=== PATIENT | male | born 1965 | race Caucasian/White ===

== ENCOUNTER 2018-07-10 10:01 | Observation (INO) ==
[2018-07-10 11:03] LABS: Baso # (Auto) 0.1 th/mm3 (0.0-0.2); Baso % (Auto) 1.1 % (0.0-2.0); Eos # (Auto) 0.1 th/mm3 (0.0-0.4); Eos % (Auto) 1.2 % (0.0-4.0); Hematocrit 46.1 % (39.0-51.0); Hemoglobin 16.1 gm/dL (13.0-17.0); Lymph # (Auto) 3.6 th/mm3 (1.0-4.8); Lymph % (Auto) 30.2 % (9.0-44.0); Mean Corpuscular HGB Conc 34.9 % (32.0-36.0); Mean Corpuscular Hemoglobin 32.5 pg (27.0-34.0); Mean Corpuscular Volume 92.9 fL (80.0-100.0); Mean Platelet Volume 11.1 fL (7.0-11.0); Mono # (Auto) 0.7 th/mm3 (0.0-0.9); Mono % (Auto) 5.7 % (0.0-8.0); Neut # (Auto) 7.3 th/mm3 (1.8-7.7); Neut % (Auto) 61.8 % (16.0-70.0); Platelet Count 191 th/mm3 (150-450); Red Blood Count 4.96 mil/mm3 (4.50-5.90); Red Cell Distribution Width 14.3 % (11.6-17.2); White Blood Count 11.8 th/mm3 (4.0-11.0)
--- NOTE | 2018-07-10 11:05 | XR ---
EXAM DATE: 07/10/2018 10:43 AM EDT AGE/SEX: 52 years / Male INDICATIONS: Swollen hands and feet, very short of breath today, no chest pain CLINICAL DATA: This is the patient's initial encounter. Patient reports that signs and symptoms have been present for 1 day and indicates a pain score of 0/10. MEDICAL/SURGICAL HISTORY: . smoker None. COMPARISON: [facility] [place], [place]. . FINDINGS: Redemonstration of pleural thickening in the left chest wall. There is however new patchy airspace op acities in the left lower lobe. The cardiomediastinal contours are unremarkable. Osseous structures are intact. CONCLUSION: 1. Persistent pleural thickening in the left chest wall with new patchy airspace opacities in the le ft lower lobe. Although the findings may reflect atelectasis/scarring since comparison exam is remote , differential considerations include pneumonia and aspiration in the appropriate clinical settings. Electronically signed by: Mono Layton MD 07/10/2018 11:04 AM EDT
[2018-07-10 11:11] LABS: Activated Partial Thrombo Time 24.4 sec (24.3-30.1); Prothrombin Time 10.5 sec (9.8-11.6)
[2018-07-10 11:25] LABS: Albumin 4.1 g/dL (3.4-5.0); Anion Gap 8 meq/L (5-15); Aspartate Aminotransferase 33 U/L (15-37); Blood Urea Nitrogen 20 mg/dL (7-18); Calcium 9.4 mg/dL (8.5-10.1); Carbon Dioxide 24.8 meq/L (21.0-32.0); Chloride 105 meq/L (98-107); Glomerular Filtration Rate 56 mL/min (>89); Glucose,Random 90 mg/dL (74-106); Potassium 4.6 meq/L (3.5-5.1); Sodium 138 meq/L (136-145)
[2018-07-10 11:26] LABS: Alanine Aminotransferase 49 U/L (12-78)
[2018-07-10 11:29] LABS: Alkaline Phosphatase 71 U/L (45-117); Creatine Kinase 311 U/L (39-308)
--- NOTE | 2018-07-10 11:32 | ED ---
HPI General Stated complaint: SOB/Swelling all over Time Seen by Provider: 07/10/18 10:31 Source: patient Mode of arrival: ambulatory Limitations: no limitations History of Present Illness HPI narrative: Patient is a 52-year-old male with history of GERD, hyperlipidemia, "labile blood pressure," vertigo, hypothyroidism, presents to the emergency room for evaluation. Patient reports that for the past week, he has had swelling to his left forearm. Patient reports that he went to an urgent care center yesterday and was seen, reports that the doctor there thought that this may be due to a medication reaction to atorvastatin. 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 Patient reports that he has noticed now swelling to his right arm. Patient reports that now he feels as if his whole body is swollen, reports that "I feel like a balloon ready to pop all over." Patient reports that as per his chest pain, patient reports that he just feels as if there is some tightness around his chest. Patient does follow-up with Dr. 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 Patient denies any recent travels or trips, no history of PE or DVT. He does smoke 1ppd of tobacco. Related Data Home Medications Medication Instructions Recorded Confirmed aspirin [Aspir-81] 81 mg PO DAILY 07/10/18 07/10/18 atenolol 25 mg PO DAILY 07/10/18 07/10/18 atorvastatin 80 mg PO DAILY 07/10/18 07/10/18 coenzyme Q10 [Co Q-10] 100 mg PO DAILY 07/10/18 07/10/18 levothyroxine [Levoxyl] 75 mcg PO DAILY 07/10/18 07/10/18 pantoprazole 40 mg PO DAILY 07/10/18 07/10/18 Allergies Allergy/AdvReac Type Severity Reaction Status Date / Time morphine Allergy Severe Hives Verified 07/10/18 10:18 codeine Allergy Unknown Hives Verified 07/10/18 10:18 Review of Systems ROS: all other systems reviewed are negative [facility] Medical History Medical History GERD (gastroesophageal reflux disease) (Acute) Hyperlipemia (Acute) Hypothyroid (Acute) Vertigo (Acute) Surgical History Surgical History Hx of cardiac cath (Acute) Social History Social History Substance History: No History of Abuse Second Hand Smoke Exposure: No Smoking Status: Current every day smoker Tobacco Type: Cigarettes How Often Do You Have a Drink Containing Alcohol: Monthly or less Immunization History Tetanus Immunization: >5 Years Exam Narrative Exam Narrative: GENERAL: Mild distress SKIN: Focused skin assessment warm/dry. HEAD: Atraumatic. Normocephalic. EYES: Pupils equal and round. No scleral icterus. No injection or drainage. ENT: No nasal bleeding or discharge. Mucous membranes pink and moist. NECK: Trachea midline. No JVD. CARDIOVASCULAR: Regular rate and rhythm. No murmur appreciated. RESPIRATORY: No accessory muscle use. Clear to auscultation. Breath sounds equal bilaterally. GASTROINTESTINAL: Abdomen soft, non-tender, nondistended. Hepatic and splenic margins not palpable. MUSCULOSKELETAL: No obvious deformities. No clubbing. No cyanosis. No edema. pulses intact NEUROLOGICAL: Awake and alert. No obvious cranial nerve deficits. Motor grossly within normal limits. Normal speech. PSYCHIATRIC: Appropriate mood and affect; insight and judgment normal. Course Initial Documented Vital Signs Temperature 98.1 F 07/10/18 10:02 Pulse Rate 65 07/10/18 10:02 Respiratory Rate 14 07/10/18 10:02 Blood Pressure 183/93 H 07/10/18 10:02 Pulse Oximetry 97 07/10/18 10:02 Last Documented Vital Signs Temperature 98.1 F 07/10/18 10:02 Pulse Rate 61 07/10/18 10:21 Respiratory Rate 21 07/10/18 10:21 Blood Pressure 162/85 H 07/10/18 10:21 Pulse Oximetry 99 07/10/18 12:10 Medical Decision Making MDM Narrative Medical decision making narrative: During the course of the patients emergency department visit, the patients history, examination, and differential diagnosis were reviewed with the patient. The patient was placed on a market research worker with oximetry and frequent blood pressure monitoring. The patient had an IV access obtained and blood work sent for analysis. wbc 11.8, hemoglobin 16.1, hematocrit 46.1, platelets 191 Sodium 138, potassium 4.6, BUN 20, creatinine 1.34, troponin less than 0.02, BNP 14 X-ray of the chest shows persistent pleural thickening the left chest wall with new patchy airspace opacities in the left lower lobe which may reflect atelectasis/scarring versus pneumonia Venous Doppler ultrasounds of bilateral upper extremities are negative for DVT. CT was ordered to rule out PE and to further evaluate the patchy airspace opacities seen in the x-ray of the chest. CTA neg for pe Patient reports that he is feeling better at this time, plan to admit to the chest pain unit - patient agreeable to observation Medical Screen Exam Complete: Yes Emergency Medical Condition: Yes Differential Diagnosis Differential Diagnosis: acs, arrythmia, dvt, pe, subclavian steel syndrome, chf , electrolyte abnormality Lab Data Result diagrams: 07/10/18 10:48 07/10/18 10:48 Lab Results 07/10/18 07/10/18 07/10/18 Range/Units 10:48 10:48 10:48 WBC 11.8 H (4.0-11.0) th/mm3 RBC 4.96 (4.50-5.90) mil/mm3 Hgb 16.1 (13.0-17.0) gm/dL Hct 46.1 (39.0-51.0) % MCV 92.9 (80.0-100.0) fL MCH 32.5 (27.0-34.0) pg MCHC 34.9 (32.0-36.0) % RDW 14.3 (11.6-17.2) % Plt Count 191 (150-450) th/mm3 MPV 11.1 H (7.0-11.0) fL Neut % (Auto) 61.8 (16.0-70.0) % Lymph % (Auto) 30.2 (9.0-44.0) % [place] % (Auto) 5.7 (0.0-8.0) % Eos % (Auto) 1.2 (0.0-4.0) % Baso % (Auto) 1.1 (0.0-2.0) % Neut # (Auto) 7.3 (1.8-7.7) th/mm3 Lymph # (Auto) 3.6 (1.0-4.8) th/mm3 [place] # (Auto) 0.7 (0.0-0.9) th/mm3 Eos # (Auto) 0.1 (0.0-0.4) th/mm3 Baso # (Auto) 0.1 (0.0-0.2) th/mm3 WBC Differential . Differential Comment Auto diff final PT 10.5 (9.8-11.6) sec INR 1.0 Ratio APTT 24.4 (24.3-30.1) sec Sodium 138 (136-145) meq/L Potassium 4.6 (3.5-5.1) meq/L Chloride 105 (98-107) meq/L Carbon Dioxide 24.8 (21.0-32.0) meq/L Anion Gap 8 (5-15) meq/L BUN 20 H (7-18) mg/dL Creatinine 1.34 H (0.60-1.30) mg/dL Estimated GFR 56 L (>89) mL/min Random Glucose 90 (74-106) mg/dL Calcium 9.4 (8.5-10.1) mg/dL Magnesium 2.0 (1.5-2.5) mg/dL Total Bilirubin 0.4 (0.2-1.0) mg/dL AST 33 (15-37) U/L ALT 49 (12-78) U/L Alkaline Phosphatase 71 (45-117) U/L Total Creatine Kinase 311 H (39-308) U/L CK-MB (CK-2) 3.6 (0.5-3.6) ng/mL CK-MB (CK-2) % 1.2 (0.0-4.0) % Troponin I Less than 0.02 L (0.02-0.05) ng/mL B-Natriuretic Peptide (0-100) pg/mL Total Protein 8.0 (6.4-8.2) g/dL Albumin 4.1 (3.4-5.0) g/dL 07/10/18 Range/Units 10:48 WBC (4.0-11.0) th/mm3 RBC (4.50-5.90) mil/mm3 Hgb (13.0-17.0) gm/dL Hct (39.0-51.0) % MCV (80.0-100.0) fL MCH (27.0-34.0) pg MCHC (32.0-36.0) % RDW (11.6-17.2) % Plt Count (150-450) th/mm3 MPV (7.0-11.0) fL Neut % (Auto) (16.0-70.0) % Lymph % (Auto) (9.0-44.0) % [place] % (Auto) (0.0-8.0) % Eos % (Auto) (0.0-4.0) % Baso % (Auto) (0.0-2.0) % Neut # (Auto) (1.8-7.7) th/mm3 Lymph # (Auto) (1.0-4.8) th/mm3 [place] # (Auto) (0.0-0.9) th/mm3 Eos # (Auto) (0.0-0.4) th/mm3 Baso # (Auto) (0.0-0.2) th/mm3 WBC Differential Differential Comment PT (9.8-11.6) sec INR Ratio APTT (24.3-30.1) sec Sodium (136-145) meq/L Potassium (3.5-5.1) meq/L Chloride (98-107) meq/L Carbon Dioxide (21.0-32.0) meq/L Anion Gap (5-15) meq/L BUN (7-18) mg/dL Creatinine (0.60-1.30) mg/dL Estimated GFR (>89) mL/min Random Glucose (74-106) mg/dL Calcium (8.5-10.1) mg/dL Magnesium (1.5-2.5) mg/dL Total Bilirubin (0.2-1.0) mg/dL AST (15-37) U/L ALT (12-78) U/L Alkaline Phosphatase (45-117) U/L Total Creatine Kinase (39-308) U/L CK-MB (CK-2) (0.5-3.6) ng/mL CK-MB (CK-2) % (0.0-4.0) % Troponin I (0.02-0.05) ng/mL B-Natriuretic Peptide 14 (0-100) pg/mL Total Protein (6.4-8.2) g/dL Albumin (3.4-5.0) g/dL Imaging Data Radiologist's impression: Chest X-Ray 07/10/18 10:43 CONCLUSION: 1. Persistent pleural thickening in the left chest wall with new patchy airspace opacities in the left lower lobe. Although the findings may reflect atelectasis/scarring since comparison exam is remote, differential considerations include pneumonia and aspiration in the appropriate clinical settings. Venous Doppler Study 07/10/18 10:43 CONCLUSION: 1. The study is negative for bilateral upper extremity deep venous thrombosis. Chest CTA 07/10/18 12:35 CONCLUSION: 1. No CT evidence for pulmonary artery embolism as questioned. 2. Diffuse left pleural thickening and calcified pleural plaque which may reflect sequela of prior empyema or hemothorax. 3. Minimal bibasilar consolidations/atelectasis. 4. Mild coronary artery cavitations. Discharge Plan Discharge Disposition Patient Disposition: 30 Still Patient Discharge Condition Condition: Stable Discharge Details Diagnosis: Chest pain Physicians Team ED Provider: Abby Marquez Primary Care Provider: Errol De Santiago Rxs /Orders / Referrals /Forms Prescriptions: No Action atorvastatin 80 mg Tablet 80 mg PO DAILY RF: 0 atenolol 25 mg Tablet 25 mg PO DAILY RF: 0 aspirin [Aspir-81] 81 mg Tablet,Delayed Release (Dr/Ec) 81 mg PO DAILY RF: 0 levothyroxine [Levoxyl] 75 mcg Tablet 75 mcg PO DAILY RF: 0 coenzyme Q10 [Co Q-10] 100 mg Capsule 100 mg PO DAILY RF: 0 pantoprazole [address] For Susp In Packet 40 mg PO DAILY RF: 0 Discharge Interventions Interventions: Vital Signs Last Done: 07/10/18 10:21 Status ED Status: With Doctor
[2018-07-10] MEDS ORDERED: Aspirin 325 MG Tablet PO ONE (11:40)
[2018-07-10 11:43] LABS: CKMB Percent 1.2 % (0.0-4.0); Creatine Kinase MB 3.6 ng/mL (0.5-3.6)
--- NOTE | 2018-07-10 12:07 | US ---
EXAM DATE: 07/10/2018 10:43 AM EDT AGE/SEX: 52 years / Male INDICATIONS: Bilateral arm swelling. CLINICAL DATA: This is the patient's initial encounter. Patient reports that signs and symptoms have been present for 1 week and indicates a pain score of 0/10. MEDICAL/SURGICAL HISTORY: Gastroesophageal reflux disease. Hypothyroidism. Hyperlipidemia. . COMPARISON: No prior exams available for comparison. FINDINGS: Right Upper Extremity: The vessels are compressible and augmentation response is documented. No fill ing defects are seen. The flow is phasic with respiration. Left Upper Extremity: The vessels are compressible and augmentation response is documented. No filli ng defects are seen. The flow is phasic with respiration. Other: None. CONCLUSION: 1. The study is negative for bilateral upper extremity deep venous thrombosis. Electronically signed by: Shadi Carson MD 07/10/2018 12:06 PM EDT
--- NOTE | 2018-07-10 14:13 | CT ---
EXAM DATE: 07/10/2018 12:42 PM EDT AGE/SEX: 52 years / Male INDICATIONS: Shortness of breath CLINICAL DATA: This is the patient's initial encounter. Patient reports that signs and symptoms have been present for 1 day and indicates a pain score of 1/10. MEDICAL/SURGICAL HISTORY: Hypothyroidism. Vertigo None. RADIATION DOSE: 22.57 CTDI (mGy) COMPARISON: [facility], CHEST 1V SINGLE AP, 07/10/2018. . TECHNIQUE: Volumetric scanning was performed using a multi-row detector CT scanner during bolus infu owen of 74 ml Omnipaque 350 (iohexol) nonionic water-soluble contrast as a single exam dose. The brayden a was post processed with a variety of visualization algorithms including full volume maximum intensi ty projection and sliding thin slab reformation. Using automated exposure control and adjustment of the mA and/or kV according to patient size, radiation dose was kept as low as reasonably achievable t o obtain optimal diagnostic quality images. DICOM format image data is available electronically for review and comparison. FINDINGS: Pulmonary Arteries: No filling defects are seen in the pulmonary arteries through the segmental vess els. The main pulmonary artery is normal in diameter. Lung: Mild groundglass opacities in the lower lobes, right greater than left. Minimal scarring at th e left lung base. Pleura: Calcified pleural plaques primarily in the left hemithorax. Mediastinum: Heart is unremarkable without pericardial effusion. Mild coronary artery calcifications . No evidence of mediastinal or hilar adenopathy. Osseous Structures: No abnormal focal lytic or blastic bony lesions. Other: Visulaized upper abdomen is unremarkable. CONCLUSION: 1. No CT evidence for pulmonary artery embolism as questioned. 2. Diffuse left pleural thickening and calcified pleural plaque which may reflect sequela of prior e mpyema or hemothorax. 3. Minimal bibasilar consolidations/atelectasis. 4. Mild coronary artery cavitations. Electronically signed by: Mono Layton MD 07/10/2018 2:12 PM EDT
[2018-07-10 14:46] LABS: Creatine Kinase 273 U/L (39-308)
[2018-07-10 14:59] LABS: Creatine Kinase MB 3.1 ng/mL (0.5-3.6)
--- NOTE | 2018-07-10 16:01 | ECG ---
Date Performed: 07/10/2018 Time Performed: 10:37:43 PTAGE: 52 years EKG: SINUS BRADYCARDIA LOW QRS VOLTAGE IN PRECORDIAL LEADS SEPTAL MYOCARDIAL INFARCTION Since pr evious tracing, no significant change noted ABNORMAL ECG PREVIOUS TRACING : 02/29/2016 14.17 DOCTOR: Emmett Guevara Interpretating Date/Time 07/10/2018 16:00:14
--- NOTE | 2018-07-10 16:22 | P.HP ---
<Peace Tripp W - Last Filed: 07/10/18 16:47> History of Present Illness Primary Care Physician: Errol De Santiago MD Chief Complaint: edema History of Present Illness: This a 52-year-old male patient with past medical history which includes CAD, cervical radiculopathy, depression, GERD, hypertension, hyperlipidemia, hypothyroidism, benign positional vertigo and cervical disk herniation. Patient cardiac catheterization 2010 showed nonocclusive small vessel disease. Lexiscan 02/2016 did not show ischemia. Patient follows with Dr. Rousseau outpatient. Patient reports about 1 to 1.5 weeks ago he began to have swelling in his left forearm then he noticed swelling in bilateral arms. Patient was presented to [facility] yesterday was told he possible reaction to his Statin and started in Lasix 20 mg PO daily, which he has not started yet.. Patient started having BLE edema which started last night. Patient also endorses gaining about 15 pounds over the last 2 months. 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 Patient also noticed chest tightness/discomfort, which he attributed to the edema. Patient then proceed to ER for further evaluation due. Patient and fiance at bedside report since he has been here the edema has gone down. Patient has been given an aspirin and Ativan while in the ER. Chest X-Ray 1. Persistent pleural thickening in the left chest wall with new patchy airspace opacities in the left lower lobe. Although the findings may reflect atelectasis/scarring since comparison exam is remote, differential considerations include pneumonia and aspiration in the appropriate clinical settings. Venous Doppler Study 1. The study is negative for bilateral upper extremity deep venous thrombosis. Chest CTA 1. No CT evidence for pulmonary artery embolism as questioned. 2. Diffuse left pleural thickening and calcified pleural plaque which may reflect sequela of prior empyema or hemothorax. 3. Minimal bibasilar consolidations/atelectasis. 4. Mild coronary artery cavitations. PMH: CAD, cervical radiculopathy, depression, GERD, hypertension, hyperlipidemia, hypothyroidism, benign positional vertigo and cervical disk herniation PSxH: Appendectomy Vasectomy FMH: Reviewed and noncontributory Social history: Patient , lives with significant other Rare EtOH use Daily smoker approximately 1 pack/day x 32 years - Diagnosis (1) Chest pain Review of Systems All other systems reviewed negative except as stated in HPI PMFSH - History History Provided By: Patient - Medical History Medical History: Medical History (Last Updated 07/10/18 @ 11:35 by Abby Marquez) GERD (gastroesophageal reflux disease) Hyperlipemia Hypothyroid Vertigo - Surgical History Surgical History: Surgical History (Last Updated 07/10/18 @ 13:58 by Julia Mtz) Hx of cardiac cath - Tobacco History Second Hand Smoke Exposure: No Tobacco Use In Past 30 Days: Yes Smoking Status: Current every day smoker Tobacco Type: Cigarettes - Alcohol History How Often Do You Have a Drink Containing Alcohol: Monthly or less - Substance Use History Substance History: No History of Abuse - Immunization History Tetanus Immunization: >5 Years Medications and Allergies Allergies Allergy/AdvReac Type Severity Reaction Status Date / Time morphine Allergy Severe Hives Verified 07/10/18 18:22 codeine Allergy Unknown Hives Verified 07/10/18 18:22 Home Medications Medication Instructions Recorded Confirmed Type aspirin [Aspir-81] 81 mg PO DAILY 07/10/18 07/10/18 History atenolol 25 mg PO DAILY 07/10/18 07/10/18 History atorvastatin 80 mg PO DAILY 07/10/18 07/10/18 History coenzyme Q10 [Co Q-10] 200 mg PO DAILY 07/10/18 07/10/18 History meclizine 25 mg PO DAILY PRN 07/10/18 07/10/18 History pantoprazole 40 mg PO DAILY 07/10/18 07/10/18 History sertraline [Zoloft] 25 mg PO DAILY 07/10/18 07/10/18 History Active Medications: Active Medications Sodium Chloride (Ns Flush) 2 ml IV.FLUSH UNSCH PRN PRN Reason: FLUSH AFTER USING IV ACCESS Exam Vital signs: Vital Signs 07/10/18 10:02 07/10/18 10:21 07/10/18 12:10 Temperature 98.1 F Pulse Rate 65 61 Respiratory Rate 14 21 Blood Pressure 183/93 H 162/85 H Pulse Oximetry 97 96 99 07/10/18 14:48 Temperature Pulse Rate 56 L Respiratory Rate 22 Blood Pressure 130/76 Pulse Oximetry 98 Intake & Output 07/09/18 07/10/18 07/10/18 18:59 06:59 18:59 Weight 114.759 kg Narrative: GENERAL: This is a well-nourished, well-developed patient, in no apparent distress. CARDIOVASCULAR: Regular rate and rhythm RESPIRATORY: Clear to auscultation. Breath sounds equal bilaterally. GASTROINTESTINAL: Abdomen soft, non-tender, nondistended. Normal active bowel sounds MUSCULOSKELETAL: Extremities without clubbing, cyanosis, or edema. NEURO: Alert & Oriented x4 to person, place, time, situation. Moves all ext x4 Results - Labs CBC & Chem 7: 07/10/18 10:48 07/10/18 10:48 Labs: Laboratory Results - last 24 hr 07/10/18 07/10/18 07/10/18 10:48 10:48 10:48 WBC 11.8 H RBC 4.96 Hgb 16.1 Hct 46.1 MCV 92.9 MCH 32.5 MCHC 34.9 RDW 14.3 Plt Count 191 MPV 11.1 H Neut % (Auto) 61.8 Lymph % (Auto) 30.2 [place] % (Auto) 5.7 Eos % (Auto) 1.2 Baso % (Auto) 1.1 Neut # (Auto) 7.3 Lymph # (Auto) 3.6 Beckham # (Auto) 0.7 Eos # (Auto) 0.1 Baso # (Auto) 0.1 WBC Differential . Differential Comment Auto diff final PT 10.5 INR 1.0 APTT 24.4 Sodium 138 Potassium 4.6 Chloride 105 Carbon Dioxide 24.8 Anion Gap 8 BUN 20 H Creatinine 1.34 H Estimated GFR 56 L Random Glucose 90 Calcium 9.4 Magnesium 2.0 Total Bilirubin 0.4 AST 33 ALT 49 Alkaline Phosphatase 71 Total Creatine Kinase 311 H CK-MB (CK-2) 3.6 CK-MB (CK-2) % 1.2 Troponin I Less than 0.02 L B-Natriuretic Peptide Total Protein 8.0 Albumin 4.1 07/10/18 07/10/18 10:48 14:10 WBC RBC Hgb Hct MCV MCH MCHC RDW Plt Count MPV Neut % (Auto) Lymph % (Auto) [place] % (Auto) Eos % (Auto) Baso % (Auto) Neut # (Auto) Lymph # (Auto) [place] # (Auto) Eos # (Auto) Baso # (Auto) WBC Differential Differential Comment PT INR APTT Sodium Potassium Chloride Carbon Dioxide Anion Gap BUN Creatinine Estimated GFR Random Glucose Calcium Magnesium Total Bilirubin AST ALT Alkaline Phosphatase Total Creatine Kinase 273 CK-MB (CK-2) 3.1 CK-MB (CK-2) % Troponin I Less than 0.02 L B-Natriuretic Peptide 14 Total Protein Albumin - Imaging Impressions Chest X-Ray 07/10/18 10:43 CONCLUSION: 1. Persistent pleural thickening in the left chest wall with new patchy airspace opacities in the left lower lobe. Although the findings may reflect atelectasis/scarring since comparison exam is remote, differential considerations include pneumonia and aspiration in the appropriate clinical settings. Venous Doppler Study 07/10/18 10:43 CONCLUSION: 1. The study is negative for bilateral upper extremity deep venous thrombosis. Chest CTA 07/10/18 12:35 CONCLUSION: 1. No CT evidence for pulmonary artery embolism as questioned. 2. Diffuse left pleural thickening and calcified pleural plaque which may reflect sequela of prior empyema or hemothorax. 3. Minimal bibasilar consolidations/atelectasis. 4. Mild coronary artery cavitations. Caprini VTE Risk Assessment Caprini VTE Risk Assessment: No/Low Risk (score <= 1) Caprini Risk Assessment Model: Point Value = 1 Point Value = 2 Point Value = 3 Point Value = 5 Age 41-60 Minor surgery BMI > 25 kg/m2 Swollen legs Varicose veins or History of unexplained or recurrent spontaneous Oral contraceptives or hormone replacement Sepsis (< 1 month) Serious lung disease, including pneumonia (< 1 month) Abnormal pulmonary function Acute myocardial infarction Congestive heart failure (< 1 month) History of inflammatory bowel disease Medical patient at bed rest Age 61-74 Arthroscopic surgery Major open surgery (> 45 min) Laparoscopic surgery (> 45 min) Malignancy Confined to bed (> 72 hours) Immobilizing plaster cast Central venous access Age >= 75 History of VTE Family history of VTE Factor V Leiden Prothrombin [id number] Lupus anticoagulant Anticardiolipin antibodies Elevated serum homocysteine Heparin-induced thrombocytopenia Other congenital or acquired thrombophilia Stroke (< 1 month) Elective arthroplasty Hip, pelvis, or leg fracture Acute spinal cord injury (< 1 month) Prophylaxis Regimen: Total Risk Factor Score Risk Level Prophylaxis Regimen 0-1 Low Early ambulation 2 Moderate Order ONE of the following: *Sequential Compression Device (SCD) *Heparin 5000 units SQ BID 3-4 Higher Order ONE of the following medications: *Heparin 5000 units SQ TID *Enoxaparin/Lovenox 40 mg SQ daily (WT < 150 kg, CrCl > 30 mL/min) *Enoxaparin/Lovenox 30 mg SQ daily (WT < 150 kg, CrCl > 10-29 mL/min) *Enoxaparin/Lovenox 30 mg SQ BID (WT < 150 kg, CrCl > 30 mL/min) AND/OR *Sequential Compression Device (SCD) 5 or more Highest Order ONE of the following medications: *Heparin 5000 units SQ TID (Preferred with Epidurals) *Enoxaparin/Lovenox 40 mg SQ daily (WT < 150 kg, CrCl > 30 mL/min) *Enoxaparin/Lovenox 30 mg SQ daily (WT < 150 kg, CrCl > 10-29 mL/min) *Enoxaparin/Lovenox 30 mg SQ BID (WT < 150 kg, CrCl > 30 mL/min) AND *Sequential Compression Device (SCD) Assessment and Plan - Assessment (1) Chest pain Code(s): R07.9 - Chest pain, unspecified Status: Acute Plan: This a 52-year-old male patient with past medical history which includes CAD, cervical radiculopathy, depression, GERD, hypertension, hyperlipidemia, hypothyroidism, benign positional vertigo and cervical disk herniation. Patient cardiac catheterization 2010 showed nonocclusive small vessel disease. Lexiscan 02/2016 did not show ischemia. Patient follows with Dr. Rousseau outpatient. Patient reports about 1 to 1.5 weeks ago he began to have swelling in his left forearm then he noticed swelling in bilateral arms. Patient was presented to [facility] yesterday was told he possible reaction to his Statin and started in Lasix 20 mg PO daily, which he has not started yet. Patient started having BLE edema which started last night. Patient also endorses gaining about 15 pounds over the last 2 months. 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 Patient also noticed chest tightness/discomfort, which he attributed to the edema. Patient then proceed to ER for further evaluation due. Patient and fiance at bedside report since he has been here the edema has gone down. Patient has been given an aspirin and ativan while in the ER. Generalized edema and weight gain Patient and fiance report he had, "pitting edema upper and lower extremities," when he came into the ER patient is not edematous at time of our evaluation Chest X-Ray 1. Persistent pleural thickening in the left chest wall with new patchy airspace opacities in the left lower lobe. Although the findings may reflect atelectasis/scarring since comparison exam is remote, differential considerations include pneumonia and aspiration in the appropriate clinical settings. Venous Doppler Study 1. The study is negative for bilateral upper extremity deep venous thrombosis. Chest CTA 1. No CT evidence for pulmonary artery embolism as questioned. 2. Diffuse left pleural thickening and calcified pleural plaque which may reflect sequela of prior empyema or hemothorax. 3. Minimal bibasilar consolidations/atelectasis. 4. Mild coronary artery cavitations. 2D echocardiogram CBC and CMP in [facility] on admission BUN 20, creatinine 1.34 and estimated GFR 56 on review of outpatient records patient has had normal renal function in the past UA, check for protein Urine creatinine protein ratio chest pain CAD Initial troponin <0.02 serial troponin continuous telemetry GERD Continue home Pantoprazole Hyperlipidemia Hold statin Hypothyroidism Continue patient's home levothyroxine 175 mcg daily check TSH Benign positional vertigo Continue patient's home Meclizine 25 mg PO daily as needed DVT prophylaxis with SCDs <Eran Issa - Last Filed: 07/10/18 20:10> History of Present Illness Primary Care Physician: Errol De Santiago MD - Diagnosis (1) Chest pain PMFSH - Medical History Medical History: Medical History (Last Updated 07/10/18 @ 11:35 by Abby Marquez) GERD (gastroesophageal reflux disease) Hyperlipemia Hypothyroid Vertigo - Surgical History Surgical History: Surgical History (Last Updated 07/10/18 @ 13:58 by Julia Mtz) Hx of cardiac cath Medications and Allergies Active Medications: Active Medications Aspirin (Ecotrin) 81 mg PO DAILY JALIL Atenolol (Tenormin) 25 mg PO DAILY JALIL Atorvastatin Calcium (Lipitor) 80 mg PO DAILY JALIL Pantoprazole Sodium (Protonix) 40 mg PO DAILY JALIL Sodium Chloride (Ns Flush) 2 ml IV.FLUSH UNSCH PRN PRN Reason: FLUSH AFTER USING IV ACCESS Exam Vital signs: Vital Signs 07/10/18 10:02 07/10/18 10:21 07/10/18 12:10 Temperature 98.1 F Pulse Rate 65 61 Respiratory Rate 14 21 Blood Pressure 183/93 H 162/85 H Pulse Oximetry 97 96 99 07/10/18 14:48 07/10/18 16:12 07/10/18 19:33 Temperature Pulse Rate 56 L 56 L 53 L Respiratory Rate 22 22 Blood Pressure 130/76 138/74 Pulse Oximetry 98 98 Intake & Output 07/10/18 07/10/18 07/11/18 06:59 18:59 06:59 Weight 113.9 kg Other: Weight On Admission 114.759 kg Results - Labs CBC & Chem 7: 07/10/18 10:48 07/10/18 10:48 Labs: Laboratory Results - last 24 hr 07/10/18 07/10/18 07/10/18 10:48 10:48 10:48 WBC 11.8 H RBC 4.96 Hgb 16.1 Hct 46.1 MCV 92.9 MCH 32.5 MCHC 34.9 RDW 14.3 Plt Count 191 MPV 11.1 H Neut % (Auto) 61.8 Lymph % (Auto) 30.2 Beckham % (Auto) 5.7 Eos % (Auto) 1.2 Baso % (Auto) 1.1 Neut # (Auto) 7.3 Lymph # (Auto) 3.6 Beckham # (Auto) 0.7 Eos # (Auto) 0.1 Baso # (Auto) 0.1 WBC Differential . Differential Comment Auto diff final PT 10.5 INR 1.0 APTT 24.4 Sodium 138 Potassium 4.6 Chloride 105 Carbon Dioxide 24.8 Anion Gap 8 BUN 20 H Creatinine 1.34 H Estimated GFR 56 L Random Glucose 90 Calcium 9.4 Magnesium 2.0 Total Bilirubin 0.4 AST 33 ALT 49 Alkaline Phosphatase 71 Total Creatine Kinase 311 H CK-MB (CK-2) 3.6 CK-MB (CK-2) % 1.2 Troponin I Less than 0.02 L B-Natriuretic Peptide Total Protein 8.0 Albumin 4.1 TSH Urine Color Urine Clarity Urine pH Ur Specific [place] Urine Protein Urine Glucose (UA) Urine Ketones Urine Occult Blood Urine Nitrate Urine Bilirubin Urine Urobilinogen Ur Leukocyte Esterase Urine WBC Urine Mucus Micro UA Comment Ur Microscopic Review Urine Culture Comments Ur Random Creatinine U Random Total Protein Protein/Creatinin Ratio 07/10/18 07/10/18 07/10/18 10:48 14:10 14:10 WBC RBC Hgb Hct MCV MCH MCHC RDW Plt Count MPV Neut % (Auto) Lymph % (Auto) Beckham % (Auto) Eos % (Auto) Baso % (Auto) Neut # (Auto) Lymph # (Auto) Beckham # (Auto) Eos # (Auto) Baso # (Auto) WBC Differential Differential Comment PT INR APTT Sodium Potassium Chloride Carbon Dioxide Anion Gap BUN Creatinine Estimated GFR Random Glucose Calcium Magnesium Total Bilirubin AST ALT Alkaline Phosphatase Total Creatine Kinase 273 CK-MB (CK-2) 3.1 CK-MB (CK-2) % Troponin I Less than 0.02 L B-Natriuretic Peptide 14 Total Protein Albumin TSH Greater than 100.000 H Urine Color Urine Clarity Urine pH Ur Specific [place] Urine Protein Urine Glucose (UA) Urine Ketones Urine Occult Blood Urine Nitrate Urine Bilirubin Urine Urobilinogen Ur Leukocyte Esterase Urine WBC Urine Mucus Micro UA Comment Ur Microscopic Review Urine Culture Comments Ur Random Creatinine U Random Total Protein Protein/Creatinin Ratio 07/10/18 07/10/18 18:00 18:00 WBC RBC Hgb Hct MCV MCH MCHC RDW Plt Count MPV Neut % (Auto) Lymph % (Auto) Beckham % (Auto) Eos % (Auto) Baso % (Auto) Neut # (Auto) Lymph # (Auto) Beckham # (Auto) Eos # (Auto) Baso # (Auto) WBC Differential Differential Comment PT INR APTT Sodium Potassium Chloride Carbon Dioxide Anion Gap BUN Creatinine Estimated GFR Random Glucose Calcium Magnesium Total Bilirubin AST ALT Alkaline Phosphatase Total Creatine Kinase CK-MB (CK-2) CK-MB (CK-2) % Troponin I B-Natriuretic Peptide Total Protein Albumin TSH Urine Color Straw Urine Clarity Clear Urine pH 7.0 Ur Specific [place] 1.013 Urine Protein Negative Urine Glucose (UA) Negative Urine Ketones Negative Urine Occult Blood Negative Urine Nitrate Negative Urine Bilirubin Negative Urine Urobilinogen Less than 2 Ur Leukocyte Esterase Negative Urine WBC Less than 1 Urine Mucus Few H Micro UA Comment Culture not ind Ur Microscopic Review Not Reportable Urine Culture Comments Culture not ind Ur Random Creatinine 56 U Random Total Protein 7.1 Protein/Creatinin Ratio 0.13 - Imaging Impressions Chest X-Ray 07/10/18 10:43 CONCLUSION: 1. Persistent pleural thickening in the left chest wall with new patchy airspace opacities in the left lower lobe. Although the findings may reflect atelectasis/scarring since comparison exam is remote, differential considerations include pneumonia and aspiration in the appropriate clinical settings. Venous Doppler Study 07/10/18 10:43 CONCLUSION: 1. The study is negative for bilateral upper extremity deep venous thrombosis. Chest CTA 07/10/18 12:35 CONCLUSION: 1. No CT evidence for pulmonary artery embolism as questioned. 2. Diffuse left pleural thickening and calcified pleural plaque which may reflect sequela of prior empyema or hemothorax. 3. Minimal bibasilar consolidations/atelectasis. 4. Mild coronary artery cavitations. Caprini VTE Risk Assessment Caprini Risk Assessment Model: Point Value = 1 Point Value = 2 Point Value = 3 Point Value = 5 Age 41-60 Minor surgery BMI > 25 kg/m2 Swollen legs Varicose veins or History of unexplained or recurrent spontaneous Oral contraceptives or hormone replacement Sepsis (< 1 month) Serious lung disease, including pneumonia (< 1 month) Abnormal pulmonary function Acute myocardial infarction Congestive heart failure (< 1 month) History of inflammatory bowel disease Medical patient at bed rest Age 61-74 Arthroscopic surgery Major open surgery (> 45 min) Laparoscopic surgery (> 45 min) Malignancy Confined to bed (> 72 hours) Immobilizing plaster cast Central venous access Age >= 75 History of VTE Family history of VTE Factor V Leiden Prothrombin [id number] Lupus anticoagulant Anticardiolipin antibodies Elevated serum homocysteine Heparin-induced thrombocytopenia Other congenital or acquired thrombophilia Stroke (< 1 month) Elective arthroplasty Hip, pelvis, or leg fracture Acute spinal cord injury (< 1 month) Prophylaxis Regimen: Total Risk Factor Score Risk Level Prophylaxis Regimen 0-1 Low Early ambulation 2 Moderate Order ONE of the following: *Sequential Compression Device (SCD) *Heparin 5000 units SQ BID 3-4 Higher Order ONE of the following medications: *Heparin 5000 units SQ TID *Enoxaparin/Lovenox 40 mg SQ daily (WT < 150 kg, CrCl > 30 mL/min) *Enoxaparin/Lovenox 30 mg SQ daily (WT < 150 kg, CrCl > 10-29 mL/min) *Enoxaparin/Lovenox 30 mg SQ BID (WT < 150 kg, CrCl > 30 mL/min) AND/OR *Sequential Compression Device (SCD) 5 or more Highest Order ONE of the following medications: *Heparin 5000 units SQ TID (Preferred with Epidurals) *Enoxaparin/Lovenox 40 mg SQ daily (WT < 150 kg, CrCl > 30 mL/min) *Enoxaparin/Lovenox 30 mg SQ daily (WT < 150 kg, CrCl > 10-29 mL/min) *Enoxaparin/Lovenox 30 mg SQ BID (WT < 150 kg, CrCl > 30 mL/min) AND *Sequential Compression Device (SCD) Assessment and Plan - Assessment (1) Chest pain Code(s): R07.9 - Chest pain, unspecified Status: Acute Plan: The exam, history, and the medical decision-making described in the above note were completed with the assistance of the mid-level provider. I reviewed and agree with the findings presented. I attest that I had a [id number] encounter with the patient on the same day, and personally performed and documented my assessment and findings in the medical record. generalized complaints of anasarca prior to arrival. on/off but worsening. about 15pound weight gain. check echo to eval for LV dysfunction. check urine pr/cr ration to exclude nephrotic proteinuria. LFT look nml so doubt liver dz. check tsh to exlude severe hypothyroidism...also says he is much more bradycardic. dose lasix x 1 now.
[2018-07-10] MEDS ORDERED: Furosemide 20 MG Tablet PO ONE (16:51)
[2018-07-10 18:23] LABS: Bilirubin,Urine Negative (Negative); Clarity,Urine Clear (Clear); Color,Urine Straw (Yellw/Straw); Glucose,Urine (UA) Negative (Negative); Leukocyte Esterase,Urine Negative (Negative); Mucus,Urine Few /lpf (Occasional); Nitrite,Urine Negative (Negative); Specific Gravity,Urine 1.013 (1.002-1.035)
[2018-07-10 18:45] LABS: Protein/Creatinine Ratio,Urine 0.13 (0.00-0.14)
[2018-07-10 20:35] LABS: Creatine Kinase 255 U/L (39-308)
[2018-07-10] MEDS ORDERED: Levothyroxine 100 MCG Tablet PO ONE (21:15)
[2018-07-11 08:28] LABS: Albumin 3.9 g/dL (3.4-5.0); Anion Gap 9 meq/L (5-15); Aspartate Aminotransferase 32 U/L (15-37); Blood Urea Nitrogen 14 mg/dL (7-18); Chloride 103 meq/L (98-107); Glomerular Filtration Rate 68 mL/min (>89); Glucose,Random 85 mg/dL (74-106); Potassium 3.9 meq/L (3.5-5.1); Sodium 138 meq/L (136-145)
[2018-07-11 08:34] LABS: Alanine Aminotransferase 46 U/L (12-78); Alkaline Phosphatase 60 U/L (45-117); Free T4 (Free Thyroxine) 0.32 ng/dL (0.76-1.46); Total Protein 7.7 g/dL (6.4-8.2)
[2018-07-11] MEDS ORDERED: Non-Formulary Drug (Coenzyme Q10 [Co Q-10] 100 MG) PO SCH (09:00)
[2018-07-11] MEDS ORDERED: Atenolol 25 MG Tablet PO SCH (09:00)
[2018-07-11] MEDS ORDERED: Potassium Chloride 10 MEQ ER Capsule PO ONE (10:05)
[2018-07-11] MEDS ORDERED: Furosemide 40 MG Tablet PO ONE (10:05)
--- NOTE | 2018-07-11 10:13 | P.PNIM ---
Subjective Interval history: less swelling. Physical Exam Vital signs: Vital Signs 07/10/18 10:21 07/10/18 12:10 07/10/18 14:48 Temperature Pulse Rate 61 56 L Respiratory Rate 21 22 Blood Pressure 162/85 H 130/76 Pulse Oximetry 96 99 98 07/10/18 16:12 07/10/18 19:33 07/10/18 20:00 Temperature 97.7 F Pulse Rate 56 L 53 L 54 L Respiratory Rate 22 18 Blood Pressure 138/74 142/75 H Pulse Oximetry 98 97 07/11/18 00:00 07/11/18 04:00 07/11/18 08:00 Temperature 97.7 F 98.3 F 97.2 F L Pulse Rate 50 L 49 L 54 L Respiratory Rate 19 19 16 Blood Pressure 120/58 L 125/63 128/61 Pulse Oximetry 92 L 92 L 95 Intake & Output 07/10/18 07/11/18 07/11/18 18:59 06:59 18:59 Intake Total 120 / 120 Output Total 300 / 300 Balance -180 / -180 Weight 113.9 kg 114.8 kg Intake: Oral 120 / 120 Output: Urine 300 / 300 Other: Weight On Admission 114.759 kg heart reg lung cta abd s/nt ext no edema Results - Labs CBC & Chem 7: 07/10/18 10:48 07/11/18 07:14 Laboratory Results - last 24 hr 07/10/18 07/10/18 07/10/18 10:48 10:48 10:48 WBC 11.8 H RBC 4.96 Hgb 16.1 Hct 46.1 MCV 92.9 MCH 32.5 MCHC 34.9 RDW 14.3 Plt Count 191 MPV 11.1 H Neut % (Auto) 61.8 Lymph % (Auto) 30.2 [place] % (Auto) 5.7 Eos % (Auto) 1.2 Baso % (Auto) 1.1 Neut # (Auto) 7.3 Lymph # (Auto) 3.6 [place] # (Auto) 0.7 Eos # (Auto) 0.1 Baso # (Auto) 0.1 WBC Differential . Differential Comment Auto diff final PT 10.5 INR 1.0 APTT 24.4 Sodium 138 Potassium 4.6 Chloride 105 Carbon Dioxide 24.8 Anion Gap 8 BUN 20 H Creatinine 1.34 H Estimated GFR 56 L Random Glucose 90 Calcium 9.4 Magnesium 2.0 Total Bilirubin 0.4 AST 33 ALT 49 Alkaline Phosphatase 71 Total Creatine Kinase 311 H CK-MB (CK-2) 3.6 CK-MB (CK-2) % 1.2 Troponin I Less than 0.02 L B-Natriuretic Peptide Total Protein 8.0 Albumin 4.1 TSH Free T4 Urine Color Urine Clarity Urine pH Ur Specific [place] Urine Protein Urine Glucose (UA) Urine Ketones Urine Occult Blood Urine Nitrate Urine Bilirubin Urine Urobilinogen Ur Leukocyte Esterase Urine WBC Urine Mucus Micro UA Comment Ur Microscopic Review Urine Culture Comments Ur Random Creatinine U Random Total Protein Protein/Creatinin Ratio 07/10/18 07/10/18 07/10/18 10:48 14:10 14:10 WBC RBC Hgb Hct MCV MCH MCHC RDW Plt Count MPV Neut % (Auto) Lymph % (Auto) [place] % (Auto) Eos % (Auto) Baso % (Auto) Neut # (Auto) Lymph # (Auto) [place] # (Auto) Eos # (Auto) Baso # (Auto) WBC Differential Differential Comment PT INR APTT Sodium Potassium Chloride Carbon Dioxide Anion Gap BUN Creatinine Estimated GFR Random Glucose Calcium Magnesium Total Bilirubin AST ALT Alkaline Phosphatase Total Creatine Kinase 273 CK-MB (CK-2) 3.1 CK-MB (CK-2) % Troponin I Less than 0.02 L B-Natriuretic Peptide 14 Total Protein Albumin TSH Greater than 100.000 H Free T4 Urine Color Urine Clarity Urine pH Ur Specific [place] Urine Protein Urine Glucose (UA) Urine Ketones Urine Occult Blood Urine Nitrate Urine Bilirubin Urine Urobilinogen Ur Leukocyte Esterase Urine WBC Urine Mucus Micro UA Comment Ur Microscopic Review Urine Culture Comments Ur Random Creatinine U Random Total Protein Protein/Creatinin Ratio 07/10/18 07/10/18 07/10/18 14:10 18:00 18:00 WBC RBC Hgb Hct MCV MCH MCHC RDW Plt Count MPV Neut % (Auto) Lymph % (Auto) [place] % (Auto) Eos % (Auto) Baso % (Auto) Neut # (Auto) Lymph # (Auto) [place] # (Auto) Eos # (Auto) Baso # (Auto) WBC Differential Differential Comment PT INR APTT Sodium Potassium Chloride Carbon Dioxide Anion Gap BUN Creatinine Estimated GFR Random Glucose Calcium Magnesium Total Bilirubin AST ALT Alkaline Phosphatase Total Creatine Kinase CK-MB (CK-2) CK-MB (CK-2) % Troponin I B-Natriuretic Peptide Total Protein Albumin TSH Free T4 0.23 L Urine Color Straw Urine Clarity Clear Urine pH 7.0 Ur Specific [place] 1.013 Urine Protein Negative Urine Glucose (UA) Negative Urine Ketones Negative Urine Occult Blood Negative Urine Nitrate Negative Urine Bilirubin Negative Urine Urobilinogen Less than 2 Ur Leukocyte Esterase Negative Urine WBC Less than 1 Urine Mucus Few H Micro UA Comment Culture not ind Ur Microscopic Review Not Reportable Urine Culture Comments Culture not ind Ur Random Creatinine 56 U Random Total Protein 7.1 Protein/Creatinin Ratio 0.13 07/10/18 07/11/18 07/11/18 19:36 07:14 07:14 WBC RBC Hgb Hct MCV MCH MCHC RDW Plt Count MPV Neut % (Auto) Lymph % (Auto) [place] % (Auto) Eos % (Auto) Baso % (Auto) Neut # (Auto) Lymph # (Auto) [place] # (Auto) Eos # (Auto) Baso # (Auto) WBC Differential Differential Comment PT INR APTT Sodium 138 Potassium 3.9 Chloride 103 Carbon Dioxide 26.0 Anion Gap 9 BUN 14 Creatinine 1.13 Estimated GFR 68 L Random Glucose 85 Calcium 9.0 Magnesium Total Bilirubin 0.5 AST 32 ALT 46 Alkaline Phosphatase 60 Total Creatine Kinase 255 CK-MB (CK-2) 3.0 CK-MB (CK-2) % Troponin I Less than 0.02 L B-Natriuretic Peptide Total Protein 7.7 Albumin 3.9 TSH Greater than 100.000 H Free T4 0.32 L Urine Color Urine Clarity Urine pH Ur Specific [place] Urine Protein Urine Glucose (UA) Urine Ketones Urine Occult Blood Urine Nitrate Urine Bilirubin Urine Urobilinogen Ur Leukocyte Esterase Urine WBC Urine Mucus Micro UA Comment Ur Microscopic Review Urine Culture Comments Ur Random Creatinine U Random Total Protein Protein/Creatinin Ratio - Imaging Impressions Chest X-Ray 07/10/18 10:43 CONCLUSION: 1. Persistent pleural thickening in the left chest wall with new patchy airspace opacities in the left lower lobe. Although the findings may reflect atelectasis/scarring since comparison exam is remote, differential considerations include pneumonia and aspiration in the appropriate clinical settings. Venous Doppler Study 07/10/18 10:43 CONCLUSION: 1. The study is negative for bilateral upper extremity deep venous thrombosis. Chest CTA 07/10/18 12:35 CONCLUSION: 1. No CT evidence for pulmonary artery embolism as questioned. 2. Diffuse left pleural thickening and calcified pleural plaque which may reflect sequela of prior empyema or hemothorax. 3. Minimal bibasilar consolidations/atelectasis. 4. Mild coronary artery cavitations. Assessment and Plan - Assessment (1) Fluid retention Code(s): R60.9 - Edema, unspecified Status: Acute Plan: ( This a 52-year-old male patient with past medical history which includes CAD, cervical radiculopathy, depression, GERD, hypertension, hyperlipidemia, hypothyroidism, benign positional vertigo and cervical disk herniation. Patient cardiac catheterization 2010 showed nonocclusive small vessel disease. Lexiscan 02/2016 did not show ischemia. Patient follows with Dr. Rousseau outpatient. Patient reports about 1 to 1.5 weeks ago he began to have swelling in his left forearm then he noticed swelling in bilateral arms. Patient was presented to [facility] yesterday was told he possible reaction to his Statin and started in Lasix 20 mg PO daily, which he has not started yet. Patient started having BLE edema which started last night. Patient also endorses gaining about 15 pounds over the last 2 months. 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 Patient also noticed chest tightness/discomfort, which he attributed to the edema. Patient then proceed to ER for further evaluation due. Patient and fiance at bedside report since he has been here the edema has gone down. Patient has been given an aspirin and ativan while in the ER. Generalized edema and weight gain Chest X-Ray 1. Persistent pleural thickening in the left chest wall with new patchy airspace opacities in the left lower lobe. Although the findings may reflect atelectasis/scarring since comparison exam is remote, differential considerations include pneumonia and aspiration in the appropriate clinical settings. Venous Doppler Study 1. The study is negative for bilateral upper extremity deep venous thrombosis. Chest CTA 1. No CT evidence for pulmonary artery embolism as questioned. 2. Diffuse left pleural thickening and calcified pleural plaque which may reflect sequela of prior empyema or hemothorax. 3. Minimal bibasilar consolidations/atelectasis. 4. Mild coronary artery cavitations. Pt swelling and weight gain and bradycardia appear related to severe hypothyroidism. tsh over 100 and free t4 .2. pt says his levothyroxine lowered about 6m ago now down to 146 pounds from 150pounds. recent dry weight in office was around 138-140pounds. give another dose lasix f/u echo increased levothyroxine and should be checked in 4-6 weeks outpt his lft and prot/cr ration not suggestive of liver/kidney etiology for swelling. addendum: echo nml. diuresing. use prn lasix for above dry weight. increase levothyroxine. tsh/free t4 qq-6weeks. called pcp f/u. dc home. ARMANDO on admission BUN 20, creatinine 1.34 and estimated GFR 56 resolved CAD Pt says he was really not having cp. It definitely wasn't anything like his angina sx's that he gets in past. GERD Continue home Pantoprazole Hyperlipidemia Hold statin Hypothyroidism see above Benign positional vertigo Continue patient's home Meclizine 25 mg PO daily as needed DVT prophylaxis with SCDs
[2018-07-11 16:20] VITALS: BP 125/69; PULSE 57; RESP 16; TEMP 98.2; O2SAT 96
--- NOTE | 2018-07-11 16:32 | ECHRPT ---
Indication: HEART FAILURE CONCLUSIONS Normal left ventricular size. Wall thickness is normal. The left ventricular systolic function is normal with an estimated ejection fraction of 55%. Mitral annular calcification is present. The estimated pulmonary arterial pressure is 14 mmHg. BP: / HR: Rhythm: Technical Quality:Fair FINDINGS LEFT VENTRICLE Normal left ventricular size. Wall thickness is normal. The left ventricular systolic function is normal with an estimated ejection fraction of 55%. RIGHT VENTRICLE The right ventricular systoilc function is normal. LEFT ATRIUM The left atrial size is normal. RIGHT ATRIUM The right atrial size is normal. ATRIAL SEPTUM Normal atrial septal thickness without atrial level shunting by limited color doppler interrogation. AORTA The aortic root and proximal ascending aorta are normal in size on limited imaging. MITRAL VALVE Mitral annular calcification is present. AORTIC VALVE Trileaflet aortic valve. No aortic valve stenosis or regurgitation. TRICUSPID VALVE The estimated pulmonary arterial pressure is 14 mmHg. PULMONARY VALVE The pulmonary valve is not well visualized. VESSELS The inferior vena cava is normal in size. PERICARDIUM No pericardial effusion. Rosey Vaughn MD, FACC (Electronically Signed) Final Date:11 July 2018 16:31
== END 2018-07-11 18:43 | disposition home or self-care (01) ==
LOC: NEDA 10:01 → NEPC 10:01 → N04 18:12
PROVIDERS: ADMIT Hospitalist; ATTEND Hospitalist